=== PATIENT | female | born 1970 | race Caucasian/White ===

== ENCOUNTER 2017-03-04 10:39 | Emergency (ER) | payer OTHER ==
[2017-03-04] MEDS ORDERED: NS 0.9% 1000 ML* 3,000 ML IV ONE (13:29)
[2017-03-04] MEDS ORDERED: Ketorolac INJ* 30 MG/ML 1 ML VIAL IV ONE (13:29)
[2017-03-04 13:30] LABS: ABS Basophils 0 10^3/ul (0-0.2); ABS Eosinophils 0 10^3/ul (0-0.6); ABS Lymphocytes 0.6 10^3/ul (1.0-4.8); ABS Monocytes 0.3 10^3/ul (0-0.8); ABS Neutrophils 14.5 10^3/ul (1.5-7.7); ABS Nucleated RBC 0 10^3/ul; Eosinophil % 0 % (0-6); Hematocrit 38 % (35-47); Hemoglobin 12.8 g/dl (12.0-16.0); Lymphocyte % 3.9 % (25-47); Mean Corpuscular HGB Conc 34 g/dl (31-36); Mean Corpuscular Hemoglobin 27 pg (27-31); Mean Corpuscular Volume 81 fL (80-97); Mean Platelet Volume 9 um3 (7.4-10.4); Nucleated Red Blood Cells % 0; Platelet Count 268 10^3/ul (150-450); Red Blood Count 4.72 10^6/ul (4.0-5.4); Red Cell Distribution Width 14 % (10.5-15); White Blood Count 15.4 10^3/ul (3.5-10.8)
[2017-03-04] MEDS: Ondansetron INJ* 2 MG/ML VIAL IV ONE ×2 (13:39→14:25)
[2017-03-04 13:50] LABS: EGFR Non-African American 86.8 (>60)
[2017-03-04 13:52] LABS: Urine Appearance Cloudy; Urine Blood 3+ (Negative); Urine Color Amber; Urine Ketones Negative (Negative); Urine Protein 1+(30 mg/dL) (Negative); Urine Specific Gravity 1.023 (1.010-1.030); Urine Urobilinogen Negative (Negative)
[2017-03-04] MEDS ORDERED: Morphine INJ* 4 MG/ML 1 ML CARPUJECT IV ONE (14:15)
--- NOTE | 2017-03-04 14:17 | RAD ---
INDICATION: Left suprapubic pain, left flank pain. COMPARISON: There are no prior studies available for comparison. TECHNIQUE: A CT scan of the abdomen and pelvis was performed without intravenous or oral contrast. Contiguous axial sections were obtained from the lung bases through the symphysis pubis. Images were reconstructed in the coronal and sagittal planes. FINDINGS: The lung bases are clear. No pleural effusion is present. The liver and spleen are normal in size without significant focal abnormality on this noncontrast study. There are calcified gallstones present. No gallbladder wall thickening is seen. The pancreas appears to be within normal limits. The adrenal glands appear within normal limits. The right kidney appears normal. The left kidney is slightly enlarged. There is a 3 mm calculus present in the upper pole of the left kidney. There is dilatation of the left renal calyces, pelvis and proximal ureter to the level of a 3 mm calculus which is causing moderate hydronephrosis. No bladder calculi are seen. The aorta is normal in caliber without significant calcific plaque. No significant enlarged retroperitoneal lymph nodes are seen. There is a small hiatal hernia. The stomach, small and large bowel appear nondistended. The appendix is within normal limits. There is mild descending and sigmoid diverticulosis without evidence for diverticulitis. The uterus is normal in size and retroverted. There is a 3.4 x 2.7 cm right ovarian cyst. No free intraperitoneal air or fluid is seen. No significant focal osseous abnormality is seen. IMPRESSION: 1. THERE IS A 3 MM CALCULUS PRESENT IN THE MID LEFT URETER CAUSING MODERATE HYDRONEPHROSIS. THERE IS AN ADDITIONAL 3 MM CALCULUS IN THE LEFT KIDNEY. 2. CHOLELITHIASIS. 3. 3.4 CM INCIDENTAL RIGHT OVARIAN CYST. RECOMMEND A FOLLOW-UP OUTPATIENT PELVIC ULTRASOUND FOR FURTHER EVALUATION.
[2017-03-04 14:19] LABS: INR 0.95 (0.77-1.02)
[2017-03-04] MEDS ORDERED: Ondansetron INJ* 2 MG/ML VIAL ONE (14:23)
[2017-03-04] MEDS ORDERED: Tamsulosin CAP* 0.4 MG PO ONE (14:53)
[2017-03-04 16:39] VITALS: BP 117/64
--- NOTE | 2017-03-04 16:44 | ED ---
Roberto Crystal Tecjoon, scribed for Matt Blackburn MD on 03/04/17 at 1333 . Abdominal Pain/Female - HPI Summary HPI Summary: This patient is a 46 year old female presenting to [facility] accompanied by family with a chief complaint of lower abdominal pain since approx. 0700 this morning. Patient states that she had left flank pain that eventually migrated to lower abd pain. Patient states that when she woke up she felt like she needed to go to the bathroom, but nothing came out. Since, she has continuously had nausea/ vomiting. Patient states she is throwing up foam or water. Patient states the pain is sudden onset, and waxes and wanes in severity. Currently, the pain is rated 9/10 in severity. Symptoms aggravated by palpation. Symptoms alleviated by moving around. The patient denies burning, dysuria. - History of Current Complaint Chief Complaint: EDAbdPain Stated Complaint: LOWER ABD PAIN Time Seen by Provider: 03/04/17 13:05 Hx Obtained From: Patient Onset/Duration: Sudden Onset, Lasting Hours - 6, Still Present Timing: Constant Severity Currently: Severe Pain Intensity: 8 Pain Scale Used: 0-10 Numeric Location: Suprapubic, Flank - left Aggravating Factor(s): Nothing Alleviating Factor(s): Other: - movement Associated Signs and Symptoms: Positive: Negative - burning, dysuria, Nausea, Vomiting Allergies/Adverse Reactions: Allergies Allergy/AdvReac Type Severity Reaction Status Date / Time No Known Allergies Allergy Verified 03/04/17 10:53 PMH/Surg Hx/FS Hx/Imm Hx Previously Healthy: Yes Endocrine/Hematology History: Denies: Hx Diabetes Cardiovascular History: Denies: Hx Hypertension, Hx Pacemaker/ICD History: Denies: Hx Dialysis, Hx Renal Disease Sensory History: Denies: Hx Hearing Aid EENT History: Denies: Hx Deafness Psychiatric History: Denies: Hx Panic Disorder - Cancer History Hx Chemotherapy: No Hx Radiation Therapy: No - Surgical History Surgery Procedure, Year, and Place: PITUITARY CYST REDUCTION; ECTOPIC ; LEFT FOOT CYST REMOVAL Infectious Disease History: No Infectious Disease History: Denies: Traveled Outside the [place] in Last 30 Days - Family History Known Family History: Negative: Hypertension - Social History Lives: With Family Hx Substance Use: No Substance Use Type: Reports: None Review of Systems Negative: Fever Positive: Abdominal Pain, Vomiting, Nausea Positive: flank pain. Negative: burning, dysuria All Other Systems Reviewed And Are Negative: Yes Physical Exam - Summary Physical Exam Summary: General: well-appearing, moderate pain distress Skin: warm, color reflects adequate perfusion, dry Head: normal Eyes: EOMI, ROXANNA ENT: normal Neck: supple, nontender Respiratory: CTA, breath sounds present Cardiovascular: RRR Abdomen: tender in suprapubic abdominal region Bowel: hypoactive bowel sounds Musculoskeletal: normal, strength/ROM intact Neurological: normal, sensory/motor intact, A&O x3 Psychological: affect/mood appropriate Triage Information Reviewed: Yes Vital Signs On Initial Exam: Initial Vitals Temp Pulse Resp BP Pulse Ox 97.8 F 68 18 122/86 99 03/04/17 10:40 03/04/17 10:40 03/04/17 10:40 03/04/17 10:40 03/04/17 10:40 Vital Signs Reviewed: Yes Diagnostics - Vital Signs Vital Signs Temp Pulse Resp BP Pulse Ox 03/04/17 12:29 97.5 F 76 16 107/82 99 03/04/17 10:40 97.8 F 68 18 122/86 99 - Laboratory Lab Results: Lab Results 03/04/17 03/04/17 03/04/17 Range/Units 13:16 13:16 13:16 WBC 15.4 H (3.5-10.8) 10^3/ul RBC 4.72 (4.0-5.4) 10^6/ul Hgb 12.8 (12.0-16.0) g/dl Hct 38 (35-47) % MCV 81 (80-97) fL MCH 27 (27-31) pg MCHC 34 (31-36) g/dl RDW 14 (10.5-15) % Plt Count 268 (150-450) 10^3/ul MPV 9 (7.4-10.4) um3 Neut % (Auto) 94.2 H (38-83) % Lymph % (Auto) 3.9 L (25-47) % [place]ead[place] % (Auto) 1.7 (1-9) % Eos % (Auto) 0 (0-6) % Baso % (Auto) 0.2 (0-2) % Absolute Neuts (auto) 14.5 H (1.5-7.7) 10^3/ul Absolute Lymphs (auto) 0.6 L (1.0-4.8) 10^3/ul Absolute Monos (auto) 0.3 (0-0.8) 10^3/ul Absolute Eos (auto) 0 (0-0.6) 10^3/ul Absolute Basos (auto) 0 (0-0.2) 10^3/ul Absolute Nucleated RBC 0 10^3/ul Nucleated RBC % 0 INR (Anticoag Therapy) (0.77-1.02) Sodium 139 (133-145) mmol/L Potassium 4.0 (3.5-5.0) mmol/L Chloride 104 (101-111) mmol/L Carbon Dioxide 28 (22-32) mmol/L Anion Gap 7 (2-11) mmol/L BUN 16 (6-24) mg/dL Creatinine 0.72 (0.51-0.95) mg/dL Est GFR ( Amer) 111.7 (>60) Est GFR (Non-Af Amer) 86.8 (>60) BUN/Creatinine Ratio 22.2 H (8-20) Glucose 134 H (70-100) mg/dL Lactic Acid 1.8 (0.5-2.0) mmol/L Calcium 9.8 (8.6-10.3) mg/dL Total Bilirubin 0.50 (0.2-1.0) mg/dL AST 13 (13-39) U/L ALT 10 (7-52) U/L Alkaline Phosphatase 63 (34-104) U/L C-Reactive Protein 1.83 (< 5.00) mg/L Total Protein 7.7 (6.4-8.9) g/dL Albumin 4.7 (3.2-5.2) g/dL Globulin 3.0 (2-4) g/dL Albumin/Globulin Ratio 1.6 (1-3) Lipase 14 (11.0-82.0) U/L Beta HCG, Quant 1.21 mIU/mL Urine Color Urine Appearance Urine pH (5-9) Ur Specific [place] (1.010-1.030) Urine Protein (Negative) Urine Ketones (Negative) Urine Blood (Negative) Urine Nitrate (Negative) Urine Bilirubin (Negative) Urine Urobilinogen (Negative) Ur Leukocyte Esterase (Negative) Urine WBC (Auto) (Absent) Urine RBC (Auto) (Absent) Urine Bacteria (Absent) Urine Yeast (Absent) Urine Glucose (Negative) 03/04/17 03/04/17 Range/Units 13:16 13:16 WBC (3.5-10.8) 10^3/ul RBC (4.0-5.4) 10^6/ul Hgb (12.0-16.0) g/dl Hct (35-47) % MCV (80-97) fL MCH (27-31) pg MCHC (31-36) g/dl RDW (10.5-15) % Plt Count (150-450) 10^3/ul MPV (7.4-10.4) um3 Neut % (Auto) (38-83) % Lymph % (Auto) (25-47) % [place] % (Auto) (1-9) % Eos % (Auto) (0-6) % Baso % (Auto) (0-2) % Absolute Neuts (auto) (1.5-7.7) 10^3/ul Absolute Lymphs (auto) (1.0-4.8) 10^3/ul Absolute Monos (auto) (0-0.8) 10^3/ul Absolute Eos (auto) (0-0.6) 10^3/ul Absolute Basos (auto) (0-0.2) 10^3/ul Absolute Nucleated RBC 10^3/ul Nucleated RBC % INR (Anticoag Therapy) 0.95 (0.77-1.02) Sodium (133-145) mmol/L Potassium (3.5-5.0) mmol/L Chloride (101-111) mmol/L Carbon Dioxide (22-32) mmol/L Anion Gap (2-11) mmol/L BUN (6-24) mg/dL Creatinine (0.51-0.95) mg/dL Est GFR ( Amer) (>60) Est GFR (Non-Af Amer) (>60) BUN/Creatinine Ratio (8-20) Glucose (70-100) mg/dL Lactic Acid (0.5-2.0) mmol/L Calcium (8.6-10.3) mg/dL Total Bilirubin (0.2-1.0) mg/dL AST (13-39) U/L ALT (7-52) U/L Alkaline Phosphatase (34-104) U/L C-Reactive Protein (< 5.00) mg/L Total Protein (6.4-8.9) g/dL Albumin (3.2-5.2) g/dL Globulin (2-4) g/dL Albumin/Globulin Ratio (1-3) Lipase (11.0-82.0) U/L Beta HCG, Quant mIU/mL Urine Color B[place]y Urine Appearance Cloudy Urine pH 6.0 (5-9) Ur Specific [place] 1.023 (1.010-1.030) Urine Protein 1+(30 mg/dl) H (Negative) Urine Ketones Negative (Negative) Urine Blood 3+ H (Negative) Urine Nitrate Negative (Negative) Urine Bilirubin Negative (Negative) Urine Urobilinogen Negative (Negative) Ur Leukocyte Esterase Negative (Negative) Urine WBC (Auto) Absent (Absent) Urine RBC (Auto) 3+(>10/hpf) H (Absent) Urine Bacteria Absent (Absent) Urine Yeast Present H (Absent) Urine Glucose Negative (Negative) Result Diagrams: 03/04/17 13:16 03/04/17 13:16 Lab Statement: Any lab studies that have been ordered have been reviewed, and results considered in the medical decision making process. - CT CT Abd/Pel CT Interpretation: Positive (See Comments) - IMPRESSION: 1. THERE IS A 3 MM CALCULUS PRESENT IN THE MID LEFT URETER CAUSING MODERATE HYDRONEPHROSIS. THERE IS AN ADDITIONAL 3 MM CALCULUS IN THE LEFT KIDNEY. 2. CHOLELITHIASIS. 3. 3.4 CM INCIDENTAL RIGHT OVARIAN CYST. RECOMMEND A FOLLOW-UP OUTPATIENT PELVIC ULTRASOUND FOR FURTHER EVALUATION. ED physician has reviewed this radiology report. CT Interpretation Completed By: Radiologist Re-Evaluation - Re-Evaluation First Eval Re-Evaluation Time: 15:03 Change: Improved Comment: We discussed imaging results with patient. Patient states that her pain improved after toradol and morphine. Abdominal Pain Fem Course/Dx - Course Course Of Treatment: This patient is a 46 year old female presenting to [facility] accompanied by family with a chief complaint of lower abdominal pain since approx. 0700 this morning. Patient states that she had left flank pain that eventually migrated to lower abd pain. Patient states that when she woke up she felt like she needed to go to the bathroom, but nothing came out. Since, she has continuously had nausea/vomiting. Patient states she is throwing up foam or water. Patient states the pain is sudden onset, and waxes and wanes in severity. Currently, the pain is rated 9/10 in severity. Symptoms aggravated by palpation. Symptoms alleviated by moving around. The patient denies burning, dysuria. CT Abd/Pel reveals, per radiologist, IMPRESSION: 1. THERE IS A 3 MM CALCULUS PRESENT IN THE MID LEFT URETER CAUSING MODERATE HYDRONEPHROSIS. THERE IS AN ADDITIONAL 3 MM CALCULUS IN THE LEFT KIDNEY. 2. CHOLELITHIASIS. 3. 3.4 CM INCIDENTAL RIGHT OVARIAN CYST. RECOMMEND A FOLLOW-UP OUTPATIENT PELVIC ULTRASOUND FOR FURTHER EVALUATION. ED physician has reviewed this radiology report. Bloodwork Obtained. Urinalysis Obtained. Medications reviewed. In the ED course the patient was given Toradol, Morphine, Zofran. Re-eval at 1503. We discussed imaging results with patient. Patient states that her pain improved after toradol and morphine. DISCUSSED RESULTS WITH PATIENT AND FAMILY. RX FLOMAX AND NORCO. TAKE OTC IBUPROFEN. STRAIN URINE. F/U UROLOGY; RETURN IF WORSE. - Diagnoses Provider Diagnoses: Kidney stone on left side Discharge - Discharge Plan Condition: Stable Disposition: HOME Prescriptions: HYDROcodone/ACETAMIN 5-325 MG* [Archbald 5-325 TAB*] 1 tab PO Q4H PRN #20 tab MDD 6 PRN Reason: Pain Ondansetron ODT TAB* [Zofran 4 MG Odt TAB*] 4 mg PO Q6H PRN #10 tab.odt PRN Reason: Nausea Tamsulosin CAP* [Flomax CAP*] 0.4 mg PO DAILY PRN #5 cap PRN Reason: Pain Patient Education Materials: Kidney Stones (ED) Referrals: [facility] [Provider Group] Geovani Flowers MD [Primary Care Provider] - James Rivera MD [Medical Doctor] - Aristeo Pathak MD [Medical Doctor] - Additional Instructions: FOLLOW UP WITH YOUR UROLOGY. RETURN TO THE EMERGENCY DEPARTMENT FOR ANY WORSENING OF YOUR CONDITION; PAIN, FEVER, DEHYDRATION, YOU FEEL ILL OR QUESTIONS OR CONCERNS. The documentation as recorded by the Roberto high Tecjoon accurately reflects the service I personally performed and the decisions made by , Matt Blackburn MD.
== END 2017-03-04 16:38 | disposition home or self-care (01) ==
LOC: ED 10:39
DX: N13.2 Hydronephrosis with renal and ureteral calculous obstruction (principal); K80.20 Calculus of gallbladder without cholecystitis without obstruction; N83.201 Unspecified ovarian cyst, right side
CPT/HCPCS: 36415; 74176; 80053; 81003; 81015; 83605; 83690; 84702; 85025; 85610; 86140; 96361; 96374; 96375; 96376; 99283; J1885; J2270; J2405